=== PATIENT | female | born 1990 | race Caucasian/White ===

== ENCOUNTER 2017-08-22 08:41 | Emergency (ER) | payer BC, SELFPAY ==
[2017-08-22 08:42] VITALS: BP 139/84; PULSE 125; RESP 16; O2SAT 95
[2017-08-22 08:47] VITALS: BP 132/55; PULSE 125; RESP 20; TEMP 36.8; O2SAT 95; BMI 25.8
[2017-08-22 09:09] LABS: Microscopic, Urine URINE MICROSCOPIC (MICROSCOPIC)
[2017-08-22 09:12] LABS: Appearance,Urine CLOUDY (Clear); Blood, Urine Negative (Negative); Color,Urine YELLOW (Yellow); Glucose,Urine (UA) Negative (Negative); Ketones,Urine Negative (Negative); Leukocyte Esterase,Urine Negative (Negative); Nitrate,Urine Negative (Negative); Protein,Urine TRACE (Negative)
[2017-08-22 09:13] LABS: Bilirubin,Urine Negative (Negative)
[2017-08-22 09:19] LABS: Amphetamine/Metha Screen,Urine Positive ng/mL (<1000); Barbiturates Screen,Urine Negative ng/mL (<200); Benzodiazepines Screen,Urine Negative ng/mL (200); Cannabinoid Screen,Urine Negative ng/mL (<50); Cocaine Screen,Urine Negative ng/g (<300); Methadone Screen,Urine Negative ng/mL (<300); Opiate Screen,Urine Positive ng/mL (<300); Phencyclidine Screen,Urine Negative ng/mL (<25)
[2017-08-22 09:22] LABS: Bacteria,Urine 4+ /lpf; Mucus,Urine 4+ /lpf
--- NOTE | 2017-08-22 09:34 | HMH.EDOD ---
ED Disposition Clinical Impression: Drug overdose Qualifiers: Encounter type: initial encounter Injury intent: accidental or unintentional Qualified Code(s): T50.901A - Poisoning by unspecified drugs, medicaments and biological substances, accidental (unintentional), initial encounter Disposition: Home, Self-Care Condition on Discharge: Good Referrals: Raf Woods [Primary Care Provider] - - Critical Care Critical Care Time: No Attestation: On 08/22/17, the high probability of a clinically significant, sudden or life threatening deterioration of the following system(s) required my full and direct attention, intervention and personal management. The time I documented below is in addition to time spent performing reported procedures but includes the following listed in this critical care notation. Medical Decision Making Vital Signs: 08/22/17 08:42 08/22/17 08:47 Temperature 98.3 F Temperature Source Oral Pulse Rate [Right Radial] 125 H 125 H Respiratory Rate 16 20 Blood Pressure [Right Arm] 139/84 132/55 Blood Pressure Mean [Right Arm] 102 80 Blood Pressure Source [Right Arm] Automatic Cuff Automatic Cuff Blood Pressure Position [Right Arm] Supine Sitting 02 Sat by Pulse Oximetry 95 95 Oxygen Delivery Method Room Air - Lab Data Lab Results 08/22/17 09:00: Urine Color Yellow, Urine Appearance Cloudy, Urine pH 7.0, Ur Specific [place] 1.020, Urine Protein Trace, Urine Glucose (UA) Negative, Urine Ketones Negative, Urine Blood Negative, Urine Nitrate Negative, Urine Bilirubin Negative, Urine Urobilinogen 1.0, Ur Leukocyte Esterase Negative, Urine WBC 5-10, Ur Squamous Epith Cells 5-10, Urine Bacteria 4+, Urine Mucus 4+ 08/22/17 09:00: Urine Opiates Screen Positive H, Ur Barbituates Screen Negative, Ur Phencyclidine Scrn Negative, Ur Amphetamines Screen Positive H, U Methamphetamines Scrn Negative, U Benzodiazepines Scrn Negative, Urine Cocaine Screen Negative, U Marijuana (THC) Screen Negative Orders (Tests/Meds): ORDERS Category Date Time Status Urine Culture Stat Micro 08/22/17 09:00 Received - Kalin Inquiry Pt receiving controlled substance: Yes (took Fentanyl purposefully) Kalin was queried for this patient: No Risks and benefits of using a controlled substance: were discussed with pt by me Overdose HPI - General Chief Complaint: Overdose Stated Complaint: overdose Mode of Arrival: EMS Limitations: No Limitations Description of Symptoms (Recalled from ER Triage Doc. by RN): paramedics found pt on the side of the road overdosed. stated they gave her 2mg of intranasal narcan and she came around. pt states she used fentanyl today but is a known heroin user. Intent: unwilling to say, other Treatments Prior to Arrival: narcan - Related Data Home Medications Medication Instructions Recorded Confirmed No Known Home Medications [No 08/22/17 08/22/17 Known Home Medications] Allergies Allergy/AdvReac Type Severity Reaction Status Date / Time NO KNOWN ALLERGIES Allergy Uncoded 06/23/17 14:[address] [facility] History - *Social History Smoking Status: Current every day smoker Tobacco Type: cigarettes Alcohol Intake: never Substance Use Type: heroin Last Used Substance: hours (ago) - Psychiatric History Expresses thoughts of harming self/others: None Suicide Plan Description: No Plan ROS Obtained: Yes All systems reviewed & no additional complaints - Constitutional Constitutional: Reports system reviewed and no additional complaints, except as docu - Eyes Eyes: Reports system reviewed and no additional complaints, except as docu - ENT Ears, Nose, Mouth, and Throat: Reports system reviewed and no additional complaints, except as docu - Cardiovascular Cardiovascular: Reports system reviewed and no additional complaints, except as docu - Respiratory Respiratory: Yes system reviewed and no additional complaints, except as docu - Gastrointestinal Gastrointesti
--- NOTE | 2017-08-22 09:37 | ED_ITS ---
ED Disposition Clinical Impression: Drug overdose Qualifiers: Encounter type: initial encounter Injury intent: accidental or unintentional Qualified Code(s): T50.901A - Poisoning by unspecified drugs, medicaments and biological substances, accidental (unintentional), initial encounter Disposition: Home, Self-Care Condition on Discharge: Good Referrals: Raf Woods [Primary Care Provider] - - Critical Care Critical Care Time: No Attestation: On 08/22/17, the high probability of a clinically significant, sudden or life threatening deterioration of the following system(s) required my full and direct attention, intervention and personal management. The time I documented below is in addition to time spent performing reported procedures but includes the following listed in this critical care notation. Medical Decision Making Vital Signs: 08/22/17 08:42 08/22/17 08:47 Temperature 98.3 F Temperature Source Oral Pulse Rate [Right Radial] 125 H 125 H Respiratory Rate 16 20 Blood Pressure [Right Arm] 139/84 132/55 Blood Pressure Mean [Right Arm] 102 80 Blood Pressure Source [Right Arm] Automatic Cuff Automatic Cuff Blood Pressure Position [Right Arm] Supine Sitting 02 Sat by Pulse Oximetry 95 95 Oxygen Delivery Method Room Air - Lab Data Lab Results 08/22/17 09:00: Urine Color Yellow, Urine Appearance Cloudy, Urine pH 7.0, Ur Specific [place] 1.020, Urine Protein Trace, Urine Glucose (UA) Negative, Urine Ketones Negative, Urine Blood Negative, Urine Nitrate Negative, Urine Bilirubin Negative, Urine Urobilinogen 1.0, Ur Leukocyte Esterase Negative, Urine WBC 5-10 , Ur Squamous Epith Cells 5-10, Urine Bacteria 4+, Urine Mucus 4+ 08/22/17 09:00: Urine Opiates Screen Positive H, Ur Barbituates Screen Negative , Ur Phencyclidine Scrn Negative, Ur Amphetamines Screen Positive H, U Methamphetamines Scrn Negative, U Benzodiazepines Scrn Negative, Urine Cocaine Screen Negative, U Marijuana (THC) Screen Negative Orders (Tests/Meds): ORDERS Category Date Time Status Urine Culture Stat Micro 08/22/17 09:00 Received - Kalin Inquiry Pt receiving controlled substance: Yes (took Fentanyl purposefully) Kalin was queried for this patient: No Risks and benefits of using a controlled substance: were discussed with pt by me Overdose HPI - General Chief Complaint: Overdose Stated Complaint: overdose Mode of Arrival: EMS Limitations: No Limitations Description of Symptoms (Recalled from ER Triage Doc. by RN): paramedics found pt on the side of the road overdosed. stated they gave her 2mg of intranasal narcan and she came around. pt states she used fentanyl today but is a known heroin user. Intent: unwilling to say, other Treatments Prior to Arrival: narcan - Related Data Home Medications Medication Instructions Recorded Confirmed No Known Home Medications [No 08/22/17 08/22/17 Known Home Medications] Allergies Allergy/AdvReac Type Severity Reaction Status Date / Time NO KNOWN ALLERGIES Allergy Uncoded 06/23/17 14:54 [facility] History - *Social History Smoking Status: Current every day smoker Tobacco Type: cigarettes Alcohol Intake: never Substance Use Type: heroin Last Used Substance: hours (ago) - Psychiatric History Expresses thoughts of harming self/others: None Suicide Pl
[2017-08-22 09:53] VITALS: BP 142/90; PULSE 128; RESP 20; TEMP 36.9; O2SAT 97
== END 2017-08-22 09:54 | disposition home or self-care (01) ==
PROVIDERS: Emergency Provider Family Medicine; Family Provider Pediatrics; PCP Family Medicine
DX: T40.4X2A Poisoning by other synthetic narcotics, intentional self-harm, initial encounter (principal); Y92.414 Local residential or business street as the place of occurrence of the external cause; F17.210 Nicotine dependence, cigarettes, uncomplicated; F11.20 Opioid dependence, uncomplicated
CPT/HCPCS: 80305; 81001; 87086; 99282

== ENCOUNTER 2017-08-23 20:08 | Emergency (ER) | payer BC, SELFPAY ==
[2017-08-23 20:23] VITALS: BP 129/87; PULSE 101; RESP 16; TEMP 37.1; O2SAT 99; BMI 20.1
--- NOTE | 2017-08-23 20:31 | XR_ITS ---
XR chest AP Ordering Physician: Vicente Elena MD Patient Age: 26 years: Female HISTORY: ITS.REASON: pain Drug abuse history.. Head chest impression last week. Difficult patient uncooperative TECHNIQUE: COMPARISON :CT chest to 1817 FINDINGS . Hazy appearance towards the right lung base. Question mild minimal infiltrate here versus overlying breast density.. The overlying breast density & high contrast digital technique may exaggerate density in this region. Left lung clear and unremarkable. Mild cardiomegaly. Superior mediastinum unremarkable. Calcified hilar nodes bilaterally. Ribs unremarkable. . No pneumothorax. No pleural effusion. Borderline cardiomegaly. IMPRESSION: Hazy appearance towards the right lung base , overlying breast density vs minimal early infiltrate. No obvious rib fractures on this chest film. Borderline to mild cardiomegaly
[2017-08-23 21:02] LABS: Basophils % 0.3 % (0.1-2.0); Eosinophils % 0.1 % (0.1-12.0); Hematocrit 45.6 % (37.0-47.0); Lymphocytes # 0.8 K/mm3 (0.7-4.5); Mean Corpuscular Hemoglobin 28.3 pg (27.0-31.2); Mean Corpuscular Volume 85.8 fl (81-99); Mean Platelet Volume 6.7 fl (7.4-10.4); Monocytes # 0.7 K/mm3 (0.1-1.0); Monocytes % 6.1 % (1.7-9.3); Neutrophils # 9.7 K/mm3 (1.8-7.8); Neutrophils % 86.5 % (37.0-80.0); Platelet Count 270 K/mm3 (142-424); Red Blood Count 5.31 M/mm3 (4.20-5.40); Red Cell Distribution Width 14.2 % (11.5-17.5); White Blood Count 11.2 K/mm3 (4.8-10.8)
[2017-08-23 21:04] LABS: MANUAL DIFFERENTIAL MANUAL DIFFERENTIAL (MANUAL DIFF)
[2017-08-23 21:06] LABS: HCG Qualitative, Serum Negative (Negative)
[2017-08-23 21:17] LABS: Lymphocytes % 4 % (10-50); Monocytes % 4 % (2-9); Neutrophils % 80 % (42-76); Platelet Estimate Normal; RBC Morphology Normal; Total Cells Counted 100
[2017-08-23 21:20] LABS: D-Dimer 1090 (0-400)
--- NOTE | 2017-08-23 21:23 | PC.NURSE ---
physician aware of elevated D-Dimer
[2017-08-23 21:24] LABS: Alanine Aminotransferase 295 U/L (12-78); Albumin Level 4.3 gm/dL (3.4-5.0); Albumin/Globulin Ratio 0.9 (1.1-1.8); Alkaline Phosphatase 116 U/L (46-116); Anion Gap 12.9 mEq/L (5-15); Aspartate Amino Transferase 129 U/L (15-37); Bilirubin,Total 1.3 mg/dL (0.2-1.0); Blood Urea Nitrogen 18 mg/dL (7-18); CKMB Relative Index 1.5 U/L (0-4.0); Calcium 9.3 mg/dL (8.5-10.1); Carbon Dioxide 28 mmol/L (21.0-32.0); Chloride 98 mmol/L (98-107); Creatine Kinase 53 U/L (26-192); Creatine Kinase MB 0.8 mg/ml (0.0-3.6); Creatinine Clearance Estimated 101 mL/min (0-300); Creatinine,Serum 0.76 mg/dL (0.55-1.02); Estimated Glomerular Filt Rate 93 ml/min (>60); GFR (African American) 112 ML/MIN (>60); Globulin 4.9 gm/dl (1.3-3.2); Glucose 104 mg/dL (74-106); Potassium 3.9 mmoL/L (3.5-5.1); Sodium 135 mmol/L (136-145); Total Protein,Serum 9.2 gm/dL (6.4-8.2); Troponin I < 0.02 ng/ml (0.00-0.06)
--- NOTE | 2017-08-23 21:26 | CT_ITS ---
CT abdomen pelvis w con Ordering Physician: Vicente Elena MD Patient Age: 26 years: Female HISTORY: ITS.REASON: abdominal pain, elevated LFTs Elevated d-dimer chest pain dyspnea abdominal pain and elevated LFTs. 26-year-old. Smoker. TECHNIQUE: Helical CT scanning performed the abdomen and pelvis following contrast from 70 cc IV contrast from preceding CTA chest. Axial sagittal and coronal reconstructions on CT workstation COMPARISON :No previous abdominal x-rays. ] Quadrant ultrasound 2010 revealed only sludge. No gallstones. FINDINGS The technologist suggest the patient had had CPR 1 week previous and ER visit. With this there is some mild swelling & edema in soft tissues anterior to the sternum, with lesser degree scant minimal fluid outlined the posterior margin of the sternum..-This observation requires correlation but most likely reflects the above history which would clearly explain this finding.. However If this is not the case then may require follow-up to exclude a sternal infection. There are no erosions or fracture or destructive changes of sternum otherwise evident. Abdomen. Liver... No biliary ductal dilatation no lesions. Generous right lobe measuring up to 20 cm height maximally. Liver upper normal size.. Gallbladder appears normal no gallstones cannot exclude sludge. The common duct appears normal. Pancreas head and body unremarkable. Borderline splenomegaly. Spleen measures 12.5 cm in length 14 cm AP. Kidneys normal enhancement nor obstruction. Stomach and small bowel appears satisfactory Large bowel. Large amount of stool throughout the cecum, right colon and continuing to the transverse colon. Prominent gaseous distention transverse colon-distends distal transverse colon nearly 6 cm diameter. At the descending colon we again see prominent stool with moderate stool rectum. Patient. Findings suggesting constipation along with gaseous distention distal transverse colon. Appendix it is difficult to visualize. But most likely extends medially from this low-lying stool filled cecum and appears normal axial image 59. Coronal 30, 31. No good evidence of appendicitis. However clinical symptoms to raise concern in this regard may require follow-up CT with oral and IV contrast as the appendix could be obscured by the enlarged right ovary making it difficult to visualize. . Pelvis. IUD in place. Retroflexed uterus. Right ovary appears enlarged measuring 5 cm AP 2.7 cm transverse... If pelvic pain persist consider follow-up pelvic ultrasound. Left ovary normal size along. Less than 3.5 cm.. More difficult to visualize. Moderate distended bladder. Appears normal . No significant free fluid at cul-de-sac. Visualized portions of spine appear intact mild disc bulge L5/S1. Sacrum is unremarkable. IMPRESSION= 1. Mild edema anterior the sternum.. Thin layer of fluid anterior and posterior to the lower sternum.. Technologist notes suggest the patient had CPR last week which certainly could account for this appearance. If not other considerations would need to be entertained 2. Enlarged right ovary measuring up to 5 cm and contains numerous small cyst IUD in place. No significant fluid in cul-de-sac 3. Appendix difficult to visualize but I believe normal 4. Large amount of stool throughout majority large bowel suggesting constipation; along with gaseous distention at the distal transverse colon.. Nonspecific observation but these features could yield abdominal discomfort as well 5. Borderline splenomegaly
--- NOTE | 2017-08-23 21:27 | HMH.EDCP ---
ED Disposition Clinical Impression: Heroin addiction, Abnormal liver enzymes Chest wall contusion Qualifiers: Encounter type: initial encounter Laterality: unspecified laterality Qualified Code(s): S20.219A - Contusion of unspecified front wall of thorax, initial encounter Abdominal pain Qualifiers: Abdominal location: unspecified location Qualified Code(s): R10.9 - Unspecified abdominal pain Disposition: Home, Self-Care Condition on Discharge: Fair Instructions: Toxic Hepatitis, DI for Contusion, DI for Drug Abuse and Drug Addiction Additional Instructions: Please follow up with [facility] regarding your drug addiction, in the morning for mandatory re-evaluation. Please follow-up with your family physician within the next 2 days for additional blood work regarding your abnormal liver enzyme tests, which are suggestive of possible hepatitis (B or C?). Please stop abusing street/illicit drugs, seek help immediately (see above referral). Your drug addiction will eventually produce/create multiple complications, possibly ! Follow-up with the above referrals is very important. Referrals: Raf Woods [Primary Care Provider] - Time of Disposition: 23:48 - Critical Care Critical Care Time: No Attestation: On 08/23/17, the high probability of a clinically significant, sudden or life threatening deterioration of the following system(s) required my full and direct attention, intervention and personal management. The time I documented below is in addition to time spent performing reported procedures but includes the following listed in this critical care notation. Medical Decision Making - Medical Records Medical records reviewed: Yes: I reviewed the patient's medical records. Vital Signs: 08/23/17 20:23 08/24/17 01:11 Temperature 98.7 F 98.9 F Temperature Source Oral Oral Pulse Rate 92 H Pulse Rate [Right Radial] 101 H Respiratory Rate 16 16 Blood Pressure 138/78 Blood Pressure [Right Arm] 129/87 Blood Pressure Mean [Right Arm] 101 Blood Pressure Source Automatic Cuff Blood Pressure Source [Right Arm] Automatic Cuff Blood Pressure Position Supine Blood Pressure Position [Right Arm] Sitting 02 Sat by Pulse Oximetry 99 Oxygen Delivery Method Room Air Room Air - Lab Data Lab results reviewed: Yes: I reviewed the patient's lab results. Lab Results 08/23/17 20:48: WBC 11.2 H, RBC 5.31, Hgb 15.0, Hct 45.6, MCV 85.8, MCH 28.3, MCHC 33.0, RDW 14.2, Plt Count 270, MPV 6.7 L, Neut % (Auto) 86.5 H, Lymph % (Auto) 7.0 L, [place] % (Auto) 6.1, Eos % (Auto) 0.1, Baso % (Auto) 0.3, Neut # (Auto) 9.7 H, Lymph # (Auto) 0.8, [place] # (Auto) 0.7, Eos # (Auto) 0.0, Baso # (Auto) 0.0, Total Counted 100, Neutrophils % (Manual) 80 H, Band Neutrophils % 12.0 H, Lymphocytes % (Manual) 4 L, Monocytes % (Manual) 4, Platelet Estimate Normal, RBC Morphology Normal 08/23/17 20:48: D-Dimer 1090 H* 08/23/17 20:48: Sodium 135 L, Potassium 3.9, Chloride 98, Carbon Dioxide 28, Anion Gap 12.9, BUN 18, Creatinine 0.76, Estimated Creat Clear 101, Estimated GFR 93, Est GFR ( Amer) 112, Glucose 104, Calcium 9.3, Total Bilirubin 1.3 H, AST 129 H, ALT 295 H, Alkaline Phosphatase 116, Total Creatine Kinase 53, CK-MB (CK-2) 0.8, CK-MB (CK-2) Rel Index 1.5, Troponin I < 0.02, Total Protein 9.2 H, Albumin 4.3, Globulin 4.9 H, Albumin/Globulin Ratio 0.9 L 08/23/17 20:48: Serum HCG, Qual Negative 08/23/17 23:50: Urine Opiates Screen Positive H, Ur Barbituates Screen Negative, Ur Phencyclidine Scrn Negative, Ur Amphetamines Screen Positive H, U Methamphetamines Scrn Negative, U Benzodiazepines Scrn Negative, Urine Cocaine Screen Negative, U Marijuana (THC) Screen Negative Result diagrams: 08/23/17 20:48 08/23/17 20:48 Orders (Tests/Meds): ED MEDICATIONS Discontinued Medications Generic Name Dose Route Start Last Admin Trade Name Freq PRN Reason Stop Dose Admin Lactated Ringer's 1,000 mls @ 999 mls/hr
--- NOTE | 2017-08-23 21:35 | CT_ITS ---
CT angio chest Ordering Physician: Vicente Elena MD Patient Age: 26 years: Female HISTORY: TECHNIQUE: CTA chest performed following 70 cc [id number] followed x 40 mL normal saline. Helical CT scan performed the chest. From the thin sections thickened axial images as well as thick slab MIPPvolume images performed In the Sagittal and coronal plane COMPARISON :No prior studies FINDINGS : No definitive evidence of pulmonary embolism The main pulmonary arteries and at inferior hilar regions are best visualized with no evidence of PE. . Motion artifact however degraded images artifact degrades images on several slices towards lung bases but no highly suspicious features. Old granulomatous disease. Prominent calcified nodes at the AP window and calcified hilar nodes. Calcified granulomas at lung hodges bilaterally as well Mild vascular engorgement may be due to less optimal inspiration. Minimal dependent atelectasis most notable posterior RLL. . No focal consolidation Heart is normal in size no pericardial effusion.. There is edema and swelling anterior to the sternum.. Scant edema posterior the sternum also noted. .-Understand questionably may have had patient may have had chest compressions Last week? However the sternum is intact with no fracture at the anterior ribs and costochondral regions appear grossly intact with no fracture nor displacement evident ribs are otherwise unremarkable. Mild levo scoliosis upper T-spine at cervical cranial junction CT abdomen report to follow separate report IMPRESSION= 1. No Good Evidence of Pulmonary Embolism. Slight suboptimal study, particularly towards lung bases due to motion artifact but but no highly suspicious findings for pulmonary embolism identified.. If Significant clinical concern should remain in May require follow-up for more optimal violation 2. Edema & mild inflammation involving soft tissues anterior, & to lesser degree posterior to sternum .. No fracture line or destructive changes sternum. (Technologist comment suggest patient had recent CPR and chest compressions which would account for these features) 3.. Old granulomatous disease. Prominent calcified nodes at the AP window, calcified hilar nodes, & calcified granulomas at lung hodges bilaterally 4. No significant acute findings pulmonary findings: No focal pneumonia. No effusion. No pneumothorax.. Minor atelectasis at deep dependent lung bases.
[2017-08-24 00:21] LABS: Amphetamine/Metha Screen,Urine Positive ng/mL (<1000); Barbiturates Screen,Urine Negative ng/mL (<200); Benzodiazepines Screen,Urine Negative ng/mL (200); Cannabinoid Screen,Urine Negative ng/mL (<50); Cocaine Screen,Urine Negative ng/g (<300); Methadone Screen,Urine Negative ng/mL (<300); Opiate Screen,Urine Positive ng/mL (<300); Phencyclidine Screen,Urine Negative ng/mL (<25)
[2017-08-24 01:11] VITALS: BP 138/78; PULSE 92; RESP 16; TEMP 37.2; O2SAT 99
== END 2017-08-24 01:16 | disposition home or self-care (01) ==
PROVIDERS: Emergency Provider Emergency Medicine; Family Provider Pediatrics; PCP Family Medicine
DX: S20.219A Contusion of unspecified front wall of thorax, initial encounter (principal); F11.20 Opioid dependence, uncomplicated; F17.210 Nicotine dependence, cigarettes, uncomplicated
CPT/HCPCS: 71045; 71275; 74177; 80053; 80305; 82550; 82553; 84484; 84703; 85007; 85025; 85378; 93005; 93041; 96365; 96366; 96374; 96375; 99284; J2310; Q9967

== ENCOUNTER 2024-09-19 08:59 | Outpatient (CLI) | payer OTHER, SELFPAY ==
--- NOTE | 2024-09-19 09:53 | XR_ITS ---
FINAL REPORT CLINICAL HISTORY: Foot Pain COMPARISON: None FINDINGS: LEFT FOOT Three views of the left foot demonstrate no acute fracture or dislocation. There is moderate hallux valgus deformity. Mild degenerative changes are noted of the 1st MTP joint. There is a small erosion or cyst of the medial 1st metatarsal head. The soft tissues are unremarkable. IMPRESSION: Chronic changes without acute process. Reviewed, Interpreted and Dictated by Cinda San MD Transcribed by Mayra Casanova Authenticated and [facility]
--- NOTE | 2024-09-19 09:53 | XR_ITS ---
FINAL REPORT CLINICAL HISTORY: Foot Pain COMPARISON: None FINDINGS: RIGHT FOOT 3 views of the right foot were obtained. There is no acute fracture or dislocation. There is mild hallux valgus deformity. Mild soft tissue calcifications are noted along the 2nd and 3rd MTP joints. There is no evidence of bony erosion. IMPRESSION: Mild degenerative changes 1st MTP joint. Reviewed, Interpreted and Dictated by Cinda aSn MD Transcribed by Mayra Casanova Authenticated and [facility]
--- NOTE | 2024-09-19 09:54 | XR_ITS ---
FINAL REPORT CLINICAL HISTORY: Right knee pain COMPARISON: None FINDINGS: Three views of the right knee were obtained. There is no acute fracture or dislocation. The joint spaces are intact. There is no soft tissue abnormality. IMPRESSION: No acute findings. Reviewed, Interpreted and Dictated by Cinda San MD Transcribed by Mayra Casanova Authenticated and [facility]
--- NOTE | 2024-09-19 09:54 | XR_ITS ---
FINAL REPORT CLINICAL HISTORY: .surgery 2018 COMPARISON: None FINDINGS: RIGHT HIP Two views of the right hip with an AP view of the pelvis demonstrate extensive postoperative changes of the proximal femur and acetabulum. There is a chronic appearing fracture of the mid femoral prosthetic stem. There is up to 6 mm of lateral displacement of the proximal hardware with chronic bony remodeling. No acute osseous fracture identified. No soft tissue abnormality is seen. IMPRESSION: Chronic appearing fracture femoral prosthesis without acute osseous change. Reviewed, Interpreted and Dictated by Cinda San MD Transcribed by Mayra Casanova Authenticated and [facility]
--- NOTE | 2024-09-19 09:54 | XR_ITS ---
FINAL REPORT CLINICAL HISTORY: Right upper leg pain, surgery 2018 COMPARISON: None FINDINGS: Two views of the right femur show extensive postoperative changes of the proximal femur. There is a chronic appearing fracture in the mid femoral prosthetic stem. There is up to 6 mm of lateral displacement of the proximal hardware with chronic bony remodeling. No acute osseous fracture identified. The distal femoral shaft is intact. IMPRESSION: Chronic appearing fracture femoral prosthesis without acute osseous change. Reviewed, Interpreted and Dictated by Cinda San MD Transcribed by Mayra Casanova Authenticated and [facility]
== END 2024-09-19 23:59 | disposition home or self-care (01) ==
LOC: RAD 09:03
PROVIDERS: PCP Physician Assistant; Visit Provider Podiatrist
DX: M79.671 Pain in right foot (principal); M79.672 Pain in left foot; M25.551 Pain in right hip
CPT/HCPCS: 73502; 73552; 73562; 73630

== ENCOUNTER 2024-10-14 14:53 | Emergency (ER) | payer OTHER, SELFPAY ==
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
[2024-10-14 15:43] VITALS: BP 135/84; PULSE 67; RESP 18; TEMP 36.7; O2SAT 100; BMI 29.0
--- NOTE | 2024-10-14 15:51 | XR_ITS ---
PROCEDURE INFORMATION: Exam: XR Right Femur Exam date and time: 10/14/2024 4:47 PM Age: 34 years old Clinical indication: Pain; Hip; Right; Prior surgery; Surgery date: 6+ months; Surgery type: 2018; Additional info: Broken femoral prosthetic, right hip pain TECHNIQUE: Imaging protocol: Radiologic exam of the right femur. Views: 2 views. Total images: 4 COMPARISON: CR Hip R 10/14/2024 4:43 PM FINDINGS: Bones/joints: Fracture of the right hip prosthesis is again noted with bone remodeling present. Postoperative changes of the acetabulum are also noted and unchanged. Soft tissues: No soft tissue swelling. IMPRESSION: Fracture of the right hip prosthesis is again noted with bone remodeling present.
--- NOTE | 2024-10-14 15:51 | XR_ITS ---
PROCEDURE INFORMATION: Exam: XR Right Hip Exam date and time: 10/14/2024 4:43 PM Age: 34 years old Clinical indication: Hip pain; Right hip; Prior surgery; Surgery date: 6+ months; Surgery type: 2018; Additional info: Broken prosthetic, right hip pain TECHNIQUE: Imaging protocol: Radiologic exam of the right hip. Views: 2 or 3 views hip with pelvis when performed. Total images: 4 COMPARISON: No relevant prior studies available. FINDINGS: Tubes, catheters and devices: Cortical thickening noted near the prosthetic fracture. Bones/joints: There is a fracture of the intramedullary portion of the right total hip replacement. Postoperative changes of the acetabulum are also noted with plate and screws in place. No evidence of acute dislocation. Soft tissues: Unremarkable. IMPRESSION: 1. There is a fracture of the intramedullary portion of the right total hip replacement. 2. Postoperative changes of the acetabulum are also noted with plate and screws in place. 3. No evidence of acute dislocation.
[2024-10-14] MEDS: LIDOCAINE 5% TRANSDERMAL PATCH 1 EACH TD (15:56)
[2024-10-14 16:23] LABS: Urine Pregnancy, HCG Qual. Negative (Negative)
[2024-10-14 17:37] VITALS: BP 130/80; PULSE 65; RESP 16; TEMP 36.7; O2SAT 97
== END 2024-10-14 17:38 | disposition home or self-care (01) ==
PROVIDERS: Emergency Provider Emergency Medicine; PCP Physician Assistant
DX: T84.010A Broken internal right hip prosthesis, initial encounter (principal); M25.551 Pain in right hip
CPT/HCPCS: 99283; 73502; 73552; 81025